=== PATIENT | male | born 1965 | race Caucasian/White ===

== ENCOUNTER 2016-08-10 17:52 | Emergency (ER) | payer OTHER ==
[~2016-08-10 17:52] MED LIST: AMLO10 PO; CHLO25 PO; DEPA500T3 PO; FAMO20 PO; HYDR-3533 PO; LACO50 PO; PROP1TAB66 PO; QUET100 PO; THIA100T PO; Z.0.WALKERFRONT
[2016-08-10 18:03] VITALS: BP 133/80; PULSE 98; RESP 20; TEMP 99.7; O2SAT 94
[2016-08-10] MEDS ORDERED: MAGICADU2 SWISH-SWAL (18:21)
--- NOTE | 2016-08-10 18:24 | PD ---
HPI Chief Complaint: Cold / Flu Symptoms Time Seen by Provider: 18:12 Travel History International Travel<30 days: No Contact w/Intl Traveler<30days: No Traveled to known affect area: No History of Present Illness HPI This patient complains of runny nose and congestion and cough and sore throat. His chief complaint is sore throat. Duration 3 days. No fever or alleviating factors. PFSH Past Medical History Arthritis: No Asthma: Yes Anxiety: Yes Depression: Yes Heart Rhythm Problems: No Cancer: No Cardiac Catheterization: No Cardiovascular Problems: No High Cholesterol: No Congestive Heart Failure: No COPD: No Cerebrovascular Accident: No Diabetes: No Diminished Hearing: No Endocrine: No Gastrointestinal Disorders: Yes GERD: Yes Genitourinary: No Headaches: Yes (Pt states while sleeping) Hepatitis: Yes (HEP C) Hiatal Hernia: No Hypertension: No Immune Disorder: No Kidney Stones: No Musculoskeletal: Yes (Scoliosis, Transver myoletis) Neurologic: Yes Psychiatric: Yes Reproductive: No Respiratory: Yes Integumentary: Yes (RECURRENT SKIN INFECTIONS) Migraines: No Renal Failure: No Seizures: No Sleep Apnea: No Ulcer: Yes Past Surgical History Abdominal Surgery: Yes (pyloric stenosis) Coronary Artery Bypass Graft: No Social History Alcohol Use: Yes (2-3 BEERS DAILY) Tobacco Use: No Substance Use: Yes (Marijuana couple times a week) Allergies-Medications (Allergen,Severity, Reaction): Coded Allergies: Erythromycin (Verified Allergy, Unknown, UNKNOWN, 01/21/16) Reported Meds & Prescriptions Reported Meds & Active Scripts Active Magic Mouthwash Adult Liq (Multi-Ingredient Mouthwash/Gargle) 120 Ml Susp 10 Ml SWISH-SWAL ACHS PRN Each 5 mL contains: Nystatin 200,000 units, Diphenhydramine 4.25 mg, Viscous Lidocaine 10 mg, Euceda syrup 0.8 mL Depakote ER 500 mg (Divalproex Sodium) 500 Mg Barry 500 Mg PO DAILY 30 Days Quetiapine Vei105 M1 100 Mg Tab 100 Mg PO HS 30 Days Inderal (Propranolol HCl) 10 Mg Tab 20 Mg PO Q6HR 30 Days Laco50 50 Mg Tab 50 Mg PO BID 30 Days Pepcid 20 Mg Ta20 Mg 20 Mg Tab 20 Mg PO BID 30 Days Norvasc (Amlodipine Besylate) 10 Mg Tab 10 Mg PO DAILY 30 Days Walker Front Wheel (Z.0.walkerfront) Device 1 Unit Lortab 5 mg/325 mg (Hydrocodone/Acetaminophen 5 mg/325 mg) 1 Tab 1 Tab PO Q6H PRN Thiamine HCl 100 Mg Tab 100 Mg PO DAILY 30 Days Librium 25 mg Cap (Chlordiazepoxide) 25 Mg Cap 25 Mg PO DAILY@09,14,21 Take THREE Times daily for 3 Days Take TWICE daily for 3 days Take ONCE a day for 3 Days Review of Systems HENT: Positive: Sore Throat, No: Headaches Respiratory: Positive: Cough Gastrointestinal: No: Vomiting Genitourinary: No: Frequency Physical Exam Narrative GENERAL: Well-nourished, well-developed patient in no apparent distress. SKIN: Warm and dry. HEAD: Atraumatic. Normocephalic. EYES: Pupils equal and round. No scleral icterus. No injection or drainage. ENT: No nasal bleeding or discharge. Mucous membranes pink and moist. No exudate on tonsils, TMs normal NECK: Trachea midline. No JVD. CARDIOVASCULAR: Regular rate and rhythm. No murmur appreciated. RESPIRATORY: No accessory muscle use. Clear to auscultation. Breath sounds equal bilaterally. GASTROINTESTINAL: Abdomen soft, non-tender, nondistended. Hepatic and splenic margins not palpable. MUSCULOSKELETAL: No obvious deformities. No clubbing. No cyanosis. No edema. NEUROLOGICAL: Awake and alert. No obvious cranial nerve deficits. Motor grossly within normal limits. Normal speech. PSYCHIATRIC: Appropriate mood and affect; insight and judgment normal. Data Data Last Documented VS Vital Signs Date Time Temp Pulse Resp B/P Pulse Ox O2 Delivery O2 Flow Rate FiO2 08/10/16 18:03 99.7 98 20 133/80 94 MDM Medical Decision Making Medical Screen Exam Complete: Yes Emergency Medical Condition: Yes Medical Record Reviewed: Yes Differential Diagnosis Pharyngitis, otitis, bronchitis Narrative Course I have reviewed the patient's electronic medical record. Patient's presentation is most consistent with an acute viral syndrome. I don' t see any indication for antibiotics. I prescribed him some Magic mouthwash for symptom relief Diagnosis Primary Impression: Acute viral syndrome Additional Impression: Acute viral pharyngitis Additional Instructions: The patient was advised to follow up with their physician and return if they worsen. The patient was warned about potential sedation for the medications they will receive on prescription. Med/Other Pt SpecificInfo: Prescription(s) given Scripts Mynaviog-Jmfigsgeqeonofu-Rvtchkoet Liq (Magic Mouthwash Adult Liq)120 Ml Susp10 Ml SWISH-SWAL ACHS PRN (PAIN SCALE 1 TO 10) #120 ML Ref 0 Each 5 mL contains: Nystatin 200,000 units, Diphenhydramine 4.25 mg, Viscous Lidocaine 10 mg, Euceda syrup 0.8 mL Prov:Calos Momin MD 08/10/16 Disposition: 01 DISCHARGE HOME Condition: Stable Calos Momin MD Aug 10, 2016 18:24
[2016-08-10] MEDS ORDERED: VENTAER INH (18:39)
[2016-08-10] MEDS ORDERED: HYDR-3533 PO (18:39)
== END 2016-08-10 18:46 | disposition home or self-care (01) ==
LOC: PHED 17:52
DX: B34.9 Viral infection, unspecified (principal); J02.9 Acute pharyngitis, unspecified
CPT/HCPCS: 99283

== ENCOUNTER 2016-09-06 18:34 | Emergency (ER) | payer OTHER ==
[~2016-09-06] VITALS: Ht 163.8 cm; Wt 63.5 kg
[~2016-09-06 18:34] MED LIST changes: -AMLO10 PO; -CHLO25 PO; -DEPA500T3 PO; -FAMO20 PO; -LACO50 PO; +MAGICADU2 SWISH-SWAL; -PROP1TAB66 PO; -QUET100 PO; -THIA100T PO; +VENTAER INH; -Z.0.WALKERFRONT
[2016-09-06 18:36] VITALS: BP 148/85; PULSE 85; RESP 16; TEMP 97.9; O2SAT 99
[2016-09-06] MEDS ORDERED: SOMA350T PO (18:53)
[2016-09-06] MEDS ORDERED: ORPHENADRINE INJ 60 MG/2 ML AMP IM ONE (19:00)
[2016-09-06] MEDS ORDERED: KETOROLAC TROMETHAMINE 60 MG/2 ML (IM) VIAL IM ONE (19:00)
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
[2016-09-06] MEDS ORDERED: IBUP800T23 PO (19:16)
== END 2016-09-06 19:26 | disposition home or self-care (01) ==
LOC: PHEFT 18:34
DX: S39.012A Strain of muscle, fascia and tendon of lower back, initial encounter (principal); V43.53XA Car driver injured in collision with pick-up truck in traffic accident, initial encounter; Y92.488 Other paved roadways as the place of occurrence of the external cause
CPT/HCPCS: 96372; 99283; J1885; J2360

== ENCOUNTER 2016-12-26 20:27 | Emergency (ER) | payer OTHER ==
[~2016-12-26] VITALS: Ht 165.1 cm; Wt 50.0 kg
[~2016-12-26 20:27] MED LIST changes: +IBUP800T23 PO; -MAGICADU2 SWISH-SWAL; +SOMA350T PO; -VENTAER INH
[2016-12-26 20:28] VITALS: BP 190/91; PULSE 74; RESP 18; TEMP 97.9; O2SAT 99
[2016-12-26] MEDS ORDERED: SODIUM CHLOR 0.9% 1000 ML INJ 1,000 ML IV ONE (20:53)
--- NOTE | 2016-12-26 20:58 | PD ---
HPI Chief Complaint: Headache Time Seen by Provider: 20:55 Travel History International Travel<30 days: No Contact w/Intl Traveler<30days: No Traveled to known affect area: No History of Present Illness HPI Patient comes in complaining of headache that has been going on all week over began getting worse shortly prior to arrival. Patient states pain began behind his right eye similar to previous headaches. Patient's pain is sharp stabbing like in nature and radiates to the back of his head. Patient reports associated nausea and photophobia. Denies any neck pain, vomiting, abdominal pain, chest pain, shortness of breath, weakness, numbness or tingling anywhere, loss or change in bowel or bladder, or fevers. Patient states he's been under a lot of stress lately and was at a pool tournament when the headache began getting worse. Patient states there was a lot of bright lights and loud noises and he was getting stressed out when the headache began getting worse. Patient states that he took his Keppra shortly prior to arrival that seemed to help a little bit with his symptoms. Patient states is not the worst headache that he is ever had. PFSH Past Medical History Arthritis: No Asthma: Yes Anxiety: Yes Depression: Yes Heart Rhythm Problems: No Cancer: No Cardiac Catheterization: No Cardiovascular Problems: No High Cholesterol: No Congestive Heart Failure: No COPD: No Cerebrovascular Accident: No Diabetes: No Diminished Hearing: No Endocrine: No Gastrointestinal Disorders: Yes GERD: Yes Genitourinary: No Headaches: Yes (Pt states while sleeping) Hepatitis: Yes (HEP C) Hiatal Hernia: No Heparin Induced Thrombocytopen: No Hypertension: No Immune Disorder: No Implanted Vascular Access Dvce: No Kidney Stones: No Musculoskeletal: Yes (Scoliosis, Transver myoletis) Neurologic: Yes Psychiatric: Yes Reproductive: No Respiratory: Yes (ASTHMA) Integumentary: Yes (RECURRENT SKIN INFECTIONS) Migraines: No Renal Failure: No Seizures: Yes Sleep Apnea: No Ulcer: Yes Past Surgical History Abdominal Surgery: Yes (pyloric stenosis) Coronary Artery Bypass Graft: No Other Surgery: No Family History Family Myocardial Infarction: Yes Social History Alcohol Use: Yes (1-2 BEERS DAILY) Tobacco Use: Yes Substance Use: Yes (Marijuana couple times a week) Allergies-Medications (Allergen,Severity, Reaction): Coded Allergies: Erythromycin (Verified Allergy, Unknown, UNKNOWN, 12/26/16) Reported Meds & Prescriptions Reported Meds & Active Scripts Active Naprosyn (Naproxen) 500 Mg Tab 500 Mg PO Q12HR PRN Reported Soma (Carisoprodol) 350 Mg Tab 350 Mg PO QID PRN Lortab (Hydrocodone-Acetaminophen) 5-325 Mg Tab 2 Tab PO Q6H PRN Review of Systems Except as stated in HPI: all other systems reviewed are Neg Physical Exam Narrative GENERAL: Well-developed, well nourished, in no acute distress, and non-ill appearing. SKIN: Focused skin assessment warm and dry. HEAD: Atraumatic. Normocephalic. EYES: Pupils equal and round. EOMI. No scleral icterus. No injection or drainage. ENT: No nasal bleeding or discharge. Mucous membranes pink and moist. NECK: Trachea midline. No JVD. Supple. No nuclear rigidity. CARDIOVASCULAR: Regular rate and rhythm. No murmur appreciated. RESPIRATORY: No accessory muscle use. No respiratory distress. Clear to auscultation. Breath sounds equal bilaterally. MUSCULOSKELETAL: No obvious deformities. No clubbing. No cyanosis. No edema. Full range of motion. NEUROLOGICAL: Awake and alert. No obvious cranial nerve deficits. Motor grossly within normal limits. Normal speech. PSYCHIATRIC: Appropriate mood and affect; insight and judgment normal. Data Data Last Documented VS Vital Signs Date Time Temp Pulse Resp B/P Pulse Ox O2 Delivery O2 Flow Rate FiO2 12/26/16 23:06 87 16 154/87 97 12/26/16 21:36 Room Air 12/26/16 20:28 97.9 Orders Ecg Monitoring (12/26/16 20:53) Iv Access Insert/Monitor (12/26/16 20:53) Oximetry (12/26/16 20:53) Sodium Chloride 0.9% Flush (Ns Flush) (12/26/16 21:00) Diphenhydramine Inj (Benadryl Inj) (12/26/16 21:00) Metoclopramide Inj (Reglan Inj) (12/26/16 21:00) Sodium Chlor 0.9% 1000 Ml Inj (Ns 1000 M (12/26/16 20:53) Ketorolac Inj (Toradol Inj) (12/26/16 23:00) MDM Medical Decision Making Medical Screen Exam Complete: Yes Emergency Medical Condition: Yes Differential Diagnosis Headache, migraine, dehydration, cluster headache, stress headache, sinus headache, other Narrative Course The patient looks great and is in no significant objective discomfort currently. Headache appears consistent with patients typical headaches. Exam is unremarkable. The patient is in no distress and the patients neurological exam is normal, neck is supple and without meningismus. The headache is not consistent with meningitis or infection, nor is it consistent with intracranial bleed (SAH etc.), carotid dissection, nor mass by history and examination. Medication and instructions to rest in a cool dark quite place were discussed with the patient. Also, outpatient follow up was instructed. The patient was instructed to return as needed or if symptoms changed or worsened, fever developed or inability to tolerate fluids. The patient agreed with plan. Patient in no obvious distress upon re-evaluation. Patient ambulatory in the emergency department without difficulty or having to cover eyes secondary to photosensitivity/photophobia. Discussed patient with Dr. Preciado prior to discharge, who is in agreement with plan of care and disposition. Patient was asked if they wanted to speak to my attending, which the patient did not wish to do at this time. Any questions/concerns in reference to patient diagnosis/condition discussed and clarified prior to patient's discharge. Reinforced sheer importance of close follow up with patient's primary physician or primary care clinic and/or neurologist. Instructed patient to return to ED immediately, if symptoms return/worsen. Pt showed understanding of above instructions. Further instructions and recommendations were detailed in discharge paperwork. Pt ambulated without difficulty out of ED at discharge. Diagnosis Primary Impression: Headache Qualified Code: R51 - Acute nonintractable headache, unspecified headache type Patient Instructions: Acute Headache (ED), General Instructions Additional Instructions: Follow-up with your primary care physician and/or neurologist to 3 days for reevaluation. Take all medication as prescribed. Return to the emergency department if symptoms get worse. Med/Other Pt SpecificInfo: Prescription(s) given Scripts Naproxen (Naprosyn)500 Mg Eek699 Mg PO Q12HR PRN (HEADACHE) #12 TAB Ref 0 Prov:Eladio Preciado MD 12/26/16 Disposition: 01 DISCHARGE HOME Condition: Stable Michael Devine December 26, 2016 20:58
[2016-12-26] MEDS ORDERED: diphenhydrAMINE HCL 50 MG/ML VIAL IVP ONE (21:00)
[2016-12-26] MEDS ORDERED: SODIUM CHLORIDE 0.9% FLUSH 10 ML FLUSH IVF PRN (21:00)
[2016-12-26] MEDS ORDERED: METOCLOPRAMIDE HCL 10 MG/2 ML VIAL IVP ONE (21:00)
[2016-12-26 21:36] VITALS: BP 154/80; PULSE 84; RESP 21; O2SAT 98
[2016-12-26] MEDS ORDERED: NAPR500 PO (22:57)
[2016-12-26] MEDS ORDERED: KETOROLAC TROMETHAMINE 30 MG/ML (IVP) VIAL IV PUSH ONE (23:00)
[2016-12-26 23:06] VITALS: BP 154/87
== END 2016-12-26 23:29 | disposition home or self-care (01) ==
LOC: NEPE 20:27
DX: R51 Headache (principal)
CPT/HCPCS: 96361; 96374; 96375; 99283; J1200; J1885; J2765; J7030

== ENCOUNTER 2017-09-14 19:54 | Emergency (ER) | payer OTHER ==
[~2017-09-14] VITALS: Ht 165.1 cm; Wt 54.0 kg
[~2017-09-14 19:54] MED LIST changes: -IBUP800T23 PO; +NAPR500 PO
[2017-09-14 20:00] VITALS: BP 165/87; PULSE 81; RESP 16; TEMP 98; O2SAT 98
[2017-09-14] MEDS ORDERED: AMOX875T PO (20:10)
[2017-09-14] MEDS ORDERED: HYDR-3583 PO (20:10)
[2017-09-14] MEDS ORDERED: LEVE500 (20:10)
[2017-09-14] MEDS ORDERED: LIDOCAINE 1%/EPINEPHrine 1:100,000 SOLN 50 ML VIAL INFIL ONE (20:30)
[2017-09-14] MEDS ORDERED: BACT800T5 PO (20:35)
[2017-09-14] MEDS ORDERED: CEPH-460 PO (20:35)
--- NOTE | 2017-09-14 20:42 | PD ---
HPI Chief Complaint: Skin Problem Time Seen by Provider: 20:06 Travel History International Travel<30 days: No Contact w/Intl Traveler<30days: No Traveled to known affect area: No History of Present Illness HPI Patient comes to the emergency department complaining of increasing pain over cyst on his neck has been there for 3 months or more. He states over the past several days has increased in size and become red. Patient states he just started amoxicillin for a sinus infection that is not helping. Patient reports history of similar in the past. Patient reports also trying warm compresses and having his girlfriend squeeze it with no success. Patient complains of burning sensation around the site without radiation. Pain is worse with palpation. PFSH Past Medical History Arthritis: No Asthma: Yes Anxiety: Yes Depression: Yes Heart Rhythm Problems: No Cancer: No Cardiac Catheterization: No Cardiovascular Problems: No High Cholesterol: No Congestive Heart Failure: No COPD: No Cerebrovascular Accident: No Diabetes: No Diminished Hearing: No Endocrine: No Gastrointestinal Disorders: Yes GERD: Yes Genitourinary: No Headaches: Yes (Pt states while sleeping) Hepatitis: Yes (HEP C) Hiatal Hernia: No Heparin Induced Thrombocytopen: No Hypertension: No Immune Disorder: No Implanted Vascular Access Dvce: No Kidney Stones: No Musculoskeletal: Yes (Scoliosis, Transver myoletis) Neurologic: Yes Psychiatric: Yes Reproductive: No Respiratory: Yes (ASTHMA) Integumentary: Yes (RECURRENT SKIN INFECTIONS) Migraines: No Renal Failure: No Seizures: Yes (GRANDMAL) Sleep Apnea: No Ulcer: Yes Tetanus Vaccination: < 5 Years Influenza Vaccination: Yes Past Surgical History Abdominal Surgery: Yes (pyloric stenosis) Coronary Artery Bypass Graft: No Other Surgery: No Family History Family Myocardial Infarction: Yes Social History Alcohol Use: Yes (1-2 BEERS DAILY) Tobacco Use: No Substance Use: Yes (Marijuana couple times a week) Allergies-Medications (Allergen,Severity, Reaction): Coded Allergies: erythromycin base (Unverified Allergy, Unknown, UNKNOWN, 09/14/17) Reported Meds & Prescriptions Reported Meds & Active Scripts Active Keflex (Cephalexin) 500 Mg Cap 500 Mg PO Q8H Bactrim DS (Sulfamethoxazole-Trimethoprim) 800-160 Mg Tab 1 Tab PO BID Reported Hydrocodone-Acetaminophen 10-325 mg Tab 1 Tab PO Q6H PRN Amoxicillin 875 Mg Tab 875 Mg PO BID Keppra (Levetiracetam) 500 Mg Tab 500 Mg BID Review of Systems Except as stated in HPI: all other systems reviewed are Neg Physical Exam Narrative GENERAL: Well-developed, well nourished, in no acute distress, and non-ill appearing. SKIN: Tender erythematous fluctuation sebaceous cyst noted on right posterior neck. There is no crepitus. No drainage. Is mildly febrile to palpation. HEAD: Atraumatic. Normocephalic. EYES: Pupils equal and round. EOMI. No scleral icterus. No injection or drainage. ENT: No nasal bleeding or discharge. Mucous membranes pink and moist. NECK: Trachea midline. Supple. No nuclear rigidity. RESPIRATORY: No accessory muscle use. No respiratory distress. MUSCULOSKELETAL: No obvious deformities. No clubbing. No cyanosis. No edema. Full range of motion. NEUROLOGICAL: Awake and alert. No obvious cranial nerve deficits. Motor grossly within normal limits. Normal speech. PSYCHIATRIC: Appropriate mood and affect; insight and judgment normal. Data Data Last Documented VS Vital Signs Date Time Temp Pulse Resp B/P (MAP) Pulse Ox O2 Delivery O2 Flow Rate FiO2 09/14/17 20:00 98.0 81 16 165/87 (113) 98 Orders Orders Wound Culture And Gram Stain (09/14/17 20:18) Lidocai-Epi 1%-1:100,000 Inj (Xylocaine- (09/14/17 20:30) Ed Discharge Order (09/14/17 20:42) MDM Medical Decision Making Medical Screen Exam Complete: Yes Emergency Medical Condition: Yes Differential Diagnosis Abscess, cellulitis, infected sebaceous cyst Narrative Course The patient has no evidence of significant cellulitis. There is no evidence of necrotizing fasciitis/ Vidal at this time. The patient will be discharged on antibiotics. The patient was given signs and symptoms warnings for worsening infection, such as spreading of redness, increasing pain, and/or swelling, associated heat, or fever or feels worse, and instructed to return immediately if these signs or symptoms worsen. The patient is to return in 2 days for recheck. Sooner if worsens or as needed. The patient agrees with plan. Patient in no obvious distress upon re-evaluation. Patient was asked if they wanted to speak to my attending, which the patient did not wish to do at this time. Any questions/concerns in reference to patient diagnosis/condition discussed and clarified prior to patient's discharge. Reinforced sheer importance of close follow up with patient's primary physician or primary care clinic or to return here in 2 days for recheck. Instructed patient to return to ED immediately, if symptoms return/worsen. Patient showed understanding of above instructions. Further instructions and recommendations were detailed in discharge paperwork. Patient ambulated without difficulty out of ED at discharge. Procedures Procedure Narrative INCISION AND DRAINAGE OF ABSCESS: Verbal consent was obtained. The area was prepped. A subcutaneous wheal of 1% Xylocaine with epi with a total number 2 mL was used to anesthetize the area. The area was properly anesthetized. A number 11 scalpel was used to make a 1-cm incision across the area of the a infected sebaceous cyst. The sebaceous cyst was drained of purulent drainage. Quarter inch iodoform packing was placed in the wound. Sterile dressing applied by nurse. Patient tolerated procedure well. Patient advised to return here in 2 days to have packing removed and wound rechecked. Patient verbalized understanding. Diagnosis Primary Impression: Infected sebaceous cyst Referrals: Joseph Gustafson MD (PCP) call for appointment Dwain Hanley MD Patient Instructions: Abscess Incision and Drainage (DC), Cyst (ED), General Instructions Additional Instructions: Follow-up with your primary care physician and/or general surgeon d to have cyst cut out. Follow-up with your primary care doctor or return here in 2 days for recheck and packing removal. Apply warm compresses to affected area.. Take all medication as prescribed. Stop taking amoxicillin start taking antibiotics prescribed today. Return to the emergency department if symptoms get worse. Med/Other Pt SpecificInfo: Prescription(s) given Scripts Cephalexin (Keflex) 500 Mg Cap 500 MG PO Q8H for Infection, #30 CAP 0 Refills Prov: Dianna Patton MD 09/14/17 Sulfamethoxazole-Trimethoprim (Bactrim DS) 800-160 Mg Tab 1 TAB PO BID for Infection, #20 TAB 0 Refills Prov: Dianna Patton MD 09/14/17 Disposition: 01 DISCHARGE HOME Condition: Stable Michael Devine Sep 14, 2017 20:42
== END 2017-09-14 20:55 | disposition home or self-care (01) ==
LOC: PHEFT 19:54
DX: L72.3 Sebaceous cyst (principal); L08.9 Local infection of the skin and subcutaneous tissue, unspecified; J45.909 Unspecified asthma, uncomplicated; F32.9 Major depressive disorder, single episode, unspecified; B19.20 Unspecified viral hepatitis C without hepatic coma; Z88.8 Allergy status to other drugs, medicaments and biological substances
CPT/HCPCS: 10061; 86403; 87070; 87205

== ENCOUNTER 2017-09-17 12:43 | Emergency (ER) | payer OTHER ==
[~2017-09-17] VITALS: Ht 165.1 cm; Wt 54.9 kg
[~2017-09-17 12:43] MED LIST changes: +AMOX875T PO; +BACT800T5 PO; +CEPH-460 PO; -HYDR-3533 PO; +HYDR-3583 PO; +LEVE500; -NAPR500 PO; -SOMA350T PO
[2017-09-17 12:48] VITALS: BP 173/74; PULSE 81; RESP 18; TEMP 97.9; O2SAT 98
--- NOTE | 2017-09-17 14:07 | PD ---
HPI Chief Complaint: Wound/Suture/Staple Re-Check Time Seen by Provider: 13:28 Travel History International Travel<30 days: No Contact w/Intl Traveler<30days: No Traveled to known affect area: No History of Present Illness HPI Physical 51-year-old male here for packing removal of an abscess on his neck. He was seen and treated 2 days ago. He denies fever or chills. He reports compliance with antibiotics. He reports minimal drainage from the site. Severity is mild. No aggravating or alleviating factors. PFSH Past Medical History Arthritis: No Asthma: Yes Anxiety: Yes Depression: Yes Heart Rhythm Problems: No Cancer: No Cardiac Catheterization: No Cardiovascular Problems: No High Cholesterol: No Congestive Heart Failure: No COPD: No Cerebrovascular Accident: No Diabetes: No Diminished Hearing: No Endocrine: No Gastrointestinal Disorders: Yes GERD: Yes Genitourinary: No Headaches: Yes (Pt states while sleeping) Hepatitis: Yes (HEP C) Hiatal Hernia: No Heparin Induced Thrombocytopen: No Hypertension: No Immune Disorder: No Implanted Vascular Access Dvce: No Kidney Stones: No Musculoskeletal: Yes (Scoliosis, Transver myoletis) Neurologic: Yes Psychiatric: Yes Reproductive: No Respiratory: Yes (ASTHMA) Integumentary: Yes (RECURRENT SKIN INFECTIONS) Immunizations Current: Yes Migraines: No Renal Failure: No Seizures: Yes (GRANDMAL) Sleep Apnea: No Ulcer: Yes Tetanus Vaccination: < 5 Years Influenza Vaccination: Yes Past Surgical History Abdominal Surgery: Yes (pyloric stenosis) Coronary Artery Bypass Graft: No Other Surgery: No Family History Family Myocardial Infarction: Yes Social History Alcohol Use: Yes (1-2 BEERS DAILY) Tobacco Use: No Substance Use: No (DENIES) Allergies-Medications (Allergen,Severity, Reaction): Coded Allergies: erythromycin base (Unverified Allergy, Unknown, UNKNOWN, 09/17/17) Reported Meds & Prescriptions Reported Meds & Active Scripts Active Keflex (Cephalexin) 500 Mg Cap 500 Mg PO Q8H Bactrim DS (Sulfamethoxazole-Trimethoprim) 800-160 Mg Tab 1 Tab PO BID Reported Hydrocodone-Acetaminophen 10-325 mg Tab 1 Tab PO Q6H PRN Keppra (Levetiracetam) 500 Mg Tab 500 Mg BID Review of Systems Except as stated in HPI: all other systems reviewed are Neg General / Constitutional: No: Fever Physical Exam Narrative GENERAL: Alert and well-appearing 51-year-old male SKIN: Warm and dry. 1.5 CM raised fluctuant area to the posterior aspect of the neck on the right side. HEAD: Normocephalic. EYES: No injection or drainage. NECK: Supple. No point spine tenderness Data Data Last Documented VS Vital Signs Date Time Temp Pulse Resp B/P (MAP) Pulse Ox O2 Delivery O2 Flow Rate FiO2 09/17/17 12:48 97.9 81 18 173/74 (107) 98 MDM Medical Decision Making Medical Screen Exam Complete: Yes Emergency Medical Condition: Yes Differential Diagnosis Inflamed sebaceous cyst, abscess, packing removal Narrative Course This is a 51-year-old male here for packing removal of an inflamed sebaceous cyst that he had incised and drained several days ago. When the bandage was removed the packing was attached to the bandage and already outside of the wound. The wound had reclosed and become fluctuant again. Incision and drainage performed again. Moderate amount of purulent drainage and sebaceous cyst material expressed. Patient was instructed to continue antibiotics and follow up with dermatology for full cyst removal. Procedures Procedure Narrative INCISION AND DRAINAGE OF ABSCESS: The area was prepped and was sterilely draped. A subcutaneous wheal of 1 % Xylocaine was used to anesthetize the area properly. A number 11 scalpel was used to make a 0.5 -cm incision across the area of the abscess. The abscess was drained, complex loculations were broken down, and irrigated with normal saline. Cultures were obtained. Sterile dressing applied. Diagnosis Primary Impression: Inflamed sebaceous cyst Referrals: [facility] Additional Instructions: Continue antibiotics as prescribed. Make a follow-up appointment with dermatology. Disposition: 01 DISCHARGE HOME Condition: Stable Dayna Wells Ashley SMART Sep 17, 2017 14:07
== END 2017-09-17 14:20 | disposition home or self-care (01) ==
LOC: PHEFT 12:43
DX: L72.3 Sebaceous cyst (principal); L08.89 Other specified local infections of the skin and subcutaneous tissue
CPT/HCPCS: 10060